=== PATIENT | female | born 1985 | race Caucasian/White ===

== ENCOUNTER 2020-10-20 08:15 | Outpatient (CLI) | payer BC | END 2020-10-20 08:16 | disposition home or self-care (01) | LOC: BICMAMMO 08:15 | PROVIDERS: ATTEND Plastic Surgery | DX: Z12.31 Encounter for screening mammogram for malignant neoplasm of breast (principal); Z80.3 Family history of malignant neoplasm of breast; R92.1 Mammographic calcification found on diagnostic imaging of breast; Z98.82 Breast implant status | CPT/HCPCS: 77063; 77067 ==

== ENCOUNTER 2020-10-21 08:14 | Outpatient (CLI) | payer BC, MEDICAID | END 2020-10-21 08:15 | disposition home or self-care (01) | LOC: BICMAMMO 08:14 | PROVIDERS: ATTEND Plastic Surgery | DX: R92.1 Mammographic calcification found on diagnostic imaging of breast (principal) | CPT/HCPCS: G0279 ==

== ENCOUNTER 2021-04-26 17:26 | Outpatient (CLI) | payer BC, OTHER, MEDICAID ==
[2021-04-26 18:25] LABS: BHCG - Serum Negative (NEGATIVE); Pregs Control Background? CLEAR/WHITE (CLR/WHITE); Pregs Control Bar Appear? YES (CONTROL BAR)
[2021-04-27 00:59] LABS: SARS-CoV-2 PCR by NAA Not Detected (NotDetected)
== END 2021-04-26 17:27 | disposition home or self-care (01) ==
LOC: LABBT 17:26
PROVIDERS: ATTEND Specialist
DX: Z01.812 Encounter for preprocedural laboratory examination (principal); H92.02 Otalgia, left ear; H72.92 Unspecified perforation of tympanic membrane, left ear; H92.12 Otorrhea, left ear; Z20.822 Contact with and (suspected) exposure to COVID-19
CPT/HCPCS: 84703; 85014; U0003; U0005

== ENCOUNTER 2021-04-29 08:23 | Day surgery (SDC) | payer BC, OTHER ==
[2021-04-28 14:03] VITALS: BMI 22.3
[2021-04-29] MEDS ORDERED: Midazolam HCl 2 mg/2 ml Vial ONE (08:53)
[2021-04-29] MEDS ORDERED: Scopolamine 1.5 mg/72 hour Patch ONE (08:54)
[2021-04-29] MEDS ORDERED: EPINEPHrine 1 MG/ML AMP ONE (09:28)
[2021-04-29] MEDS ORDERED: Bacitracin Zinc Ointment 30 gm TUBE ONE (09:28)
[2021-04-29] MEDS ORDERED: Lidocaine 1% w/Epinephrine 1:100K 20 ML VIAL ONE (09:28)
[2021-04-29] MEDS ORDERED: Ciprofloxacin 0.2% Otic (0.25ML CONTAINER) ONE ×2 (09:29→10:37)
[2021-04-29] MEDS ORDERED: Glycopyrrolate 0.2 MG/ML 5 ML SYRINGE ONE (09:56)
[2021-04-29] MEDS ORDERED: Ondansetron PF 4 MG/2 ML Vial ONE (09:56)
[2021-04-29] MEDS ORDERED: Lidocaine 1% PF 5 ML VIAL ONE (09:56)
[2021-04-29] MEDS ORDERED: PROPOFOL 200 MG/20 ML VIAL ONE (09:56)
[2021-04-29] MEDS ORDERED: Dexamethasone 20 MG/5 ML VIAL ONE (09:56)
[2021-04-29] MEDS ORDERED: Rocuronium Bromide 10 MG/ML (10ML VIAL) ONE (09:56)
[2021-04-29] MEDS ORDERED: Ketorolac Tromethamine 30 MG/ML VIAL ONE (09:56)
[2021-04-29] MEDS ORDERED: Fentanyl 100 MCG/2 ML VIAL ONE (10:06)
== END 2021-04-29 14:45 | disposition home or self-care (01) ==
LOC: SDC 08:23
PROVIDERS: ATTEND Specialist
PROC: 0NB60ZZ Excision of Left Temporal Bone, Open Approach (ICD-10-PCS; principal; 2021-04-29)
PROC: 09U807Z Supplement Left Tympanic Membrane with Autologous Tissue Substitute, Open Approach (ICD-10-PCS; principal; 2021-04-29)
DX: H66.92 Otitis media, unspecified, left ear (principal); H72.92 Unspecified perforation of tympanic membrane, left ear; H70.12 Chronic mastoiditis, left ear; F17.210 Nicotine dependence, cigarettes, uncomplicated; Z79.899 Other long term (current) drug therapy
CPT/HCPCS: J0171; J1100; J1885; J2250; J2405; J2704; J3010